=== PATIENT | female | born 1995 | race Two or more races ===

== ENCOUNTER 2022-03-25 07:40 | Emergency (ER) | payer MEDICAID ==
[~2022-03-25] VITALS: Ht 152.4 cm; Wt 95.3 kg
--- NOTE | 2022-03-25 08:02 | NUR ---
Patient here with her Mother. Was seen by ER doctor
--- NOTE | 2022-03-25 08:12 | NUR ---
DC and follow up instructions given and explained to patient who states she understands all instructions
== END 2022-03-25 08:16 | disposition home or self-care (01) ==
LOC: ER 07:40
DX: N83.209 Unspecified ovarian cyst, unspecified side (principal); R10.2 Pelvic and perineal pain
CPT/HCPCS: A4663